=== PATIENT | male | born 1980 | race Caucasian/White ===

== ENCOUNTER 2017-04-13 02:23 | Emergency (ER) | payer OTHER ==
[2017-04-13 02:34] VITALS: BP 129/80
--- NOTE | 2017-04-13 03:00 | ED Physician Documentation ---
PD HPI UPPER EXT INJURY - Stated complaint Stated Complaint: LT HAND INJURY - Chief complaint Chief Complaint: Ext Problem - History obtained from History obtained from: Patient - History of Present Illness Location: Left, Hand Type of injury: Fall Where injury occurred: A house / apartment Timing - onset: Other (shortly before arrival) Timing - details: Abrupt onset Associated symptoms: No: Weakness, Numbness Recently seen: Not recently seen - Additonal information Additional information: patient was at friend's house, chair he was sitting on fell backwards and patient's left hand got caught between the chair and the wall, sustained laceration to left fourth digit. UTD with tetanus (August 2016). Patient is right-hand dominant Review of Systems Skin: reports: Laceration (s) Neurologic: denies: Focal weakness, Numbness PD PAST MEDICAL HISTORY - Past Medical History Past Medical History: No - Past Surgical History Past Surgical History: No - Present Medications Home Medications: Ambulatory Orders Medication Instructions Recorded Confirmed Cephalexin [Keflex] 500 mg PO QID #19 capsule 04/13/17 - Allergies Allergies/Adverse Reactions: Allergies Allergy/AdvReac Type Severity Reaction Status Date / Time No Known Drug Allergies Allergy Verified 04/13/17 02:34 - Social History Does the pt smoke?: No Smoking Status: Never smoker Does the pt drink ETOH?: No Does the pt have substance abuse?: No - Immunizations Immunizations are current?: Yes PD ED PE NORMAL - Vitals Vital signs reviewed: Yes - General General: Alert and oriented X 3, No acute distress, Well developed/nourished - Neuro Neuro: No motor deficit, No sensory deficit, Other (LTS intact left fourth digit. left fourth digit has FROM (extension and flexion), and 5/5 strength flexion and extension, including with isolation of DIP and PIP joints) PD ED PE EXPANDED - Extremities CHANDU UE/Hands Visual: 1 - laceration (3 cm length) Results - Vitals Vitals: Vital Signs - 24 hr 04/13/17 02:29 Temperature 37.0 C Heart Rate 103 H Respiratory 16 Rate Blood Pressure 129/80 O2 Saturation 96 Oxygen O2 Source Room air Procedures - Laceration (location) Finger left Length in cm: 3 Wound type: Linear, Into subcut fat, Clean Neurovascular status: Sensory intact, Motor intact, Vascular intact Tendon involvement: Tendon intact Anesthesia: Lidocaine 1% Wound Preparation: Chlorhexadine Skin layer closure: Nylon, Interrupted, Running, Size #-0 - enter number (5-0) Other: Patient tolerated well, No complications, Neurovascular intact, Dressing applied, Tetanus UTD Complexity: Simple PD MEDICAL DECISION MAKING - ED course Complexity details: considered differential, d/w patient Departure - Departure Disposition: 01 Home, Self Care Clinical Impression: Laceration of finger of left hand Condition: Good Instructions: ED Laceration Hand Follow-Up: SYDNEY Guzman [Provider Group] (7-10 days for suture removal) Prescriptions: Cephalexin [Keflex] 500 mg PO QID #19 capsule Discharge Date/Time: 04/13/17 04:00
[2017-04-13] MEDS ORDERED: LIDOCAINE 1% 50 ML MDV SUBQ STA (03:03)
[2017-04-13] MEDS ORDERED: LIDOCAINE 1% 2 ML VIAL ONE ×2 (03:04→03:15)
[2017-04-13] MEDS ORDERED: BACITRACIN OINT TOP STA (03:43)
[2017-04-13] MEDS ORDERED: CEPHALEXIN 250 MG CAPSULE PO STA (03:44)
[2017-04-13] MEDS ORDERED: CEPHALEXIN 250 MG CAPSULE PO ONE (03:49)
== END 2017-04-13 04:00 | disposition home or self-care (01) ==
LOC: ED 02:23
DX: S61.215A Laceration without foreign body of left ring finger without damage to nail, initial encounter (principal); W23.1XXA Caught, crushed, jammed, or pinched between stationary objects, initial encounter; Y92.038 Other place in apartment as the place of occurrence of the external cause
CPT/HCPCS: 12002; 99283; A9270